=== PATIENT | female | born 1970 | race Hispanic/Latino ===

== ENCOUNTER 2019-08-30 22:00 | Emergency (ER) | payer OTHER ==
[2019-08-30] MEDS ORDERED: SODIUM CHLORIDE 0.9% 1000 ML 1,000 ML IV ONE (22:13)
[2019-08-30] MEDS ORDERED: levETIRAcetam 1000 MG/NS 0.75% 1,000 MG/100 ML BAG IV ONE (22:13)
[2019-08-30] MEDS ORDERED: MORPHINE 4 MG/1 ML INJ IV ONE (22:33)
[2019-08-30] MEDS ORDERED: ONDANSETRON 4 MG/2 ML INJ ONE (22:37)
--- NOTE | 2019-08-30 22:59 | XRay Report ---
Left knee 3 views INDICATION: Left knee pain. IMPRESSION: No fracture or subluxation of the left knee is identified. Signer Name: Eduardo Denis MD Signed: 08/30/2019 10:55 PM Workstation Name: [id number]
[2019-08-30 23:10] LABS: Basophils # (Auto) 0.1 K/mm3 (0.0-0.1); Basophils % (Auto) 1.1 % (0.0-1.8); Eosinophils # (Auto) 0.2 K/mm3 (0.0-0.4); Eosinophils % (Auto) 2.5 % (0.0-4.3); Hematocrit 35.2 % (30.3-42.9); Hemoglobin 11.1 gm/dl (10.1-14.3); Lymphocytes # (Auto) 2.1 K/mm3 (1.2-5.4); Lymphocytes % (Auto) 22.6 % (13.4-35.0); Mean Corpuscular HGB Conc 32 % (30-34); Mean Corpuscular Volume 86 fl (79-97); Monocytes # (Auto) 0.7 K/mm3 (0.0-0.8); Monocytes % (Auto) 7.9 % (0.0-7.3); Platelet Count 270 K/mm3 (140-440); Red Blood Count 4.12 M/mm3 (3.65-5.03); Red Cell Distribution Width 16.1 % (13.2-15.2)
--- NOTE | 2019-08-30 23:14 | Cat Scan Report ---
CT head without contrast INDICATION : Seizure with headache. TECHNIQUE: Axial imaging performed from the skull apex through the skull base without the use of con trast. All CT examinations performed at this facility utilize dose modulation, iterative reconstruct ion or weight-based dosing, when appropriate, to reduce radiation dose to as low as reasonably achiev able. COMPARISON: None FINDINGS: No acute intracranial hemorrhage or parenchymal abnormality. Ventricles are normal in si ze and appear symmetric. Soft tissues including the orbits appear normal. No acute osseous abnorm ality. Sinuses and mastoid air cells are clear. IMPRESSION: No acute abnormality. Signer Name: Eduardo Denis MD Signed: 08/30/2019 11:09 PM Workstation Name: [id number]
--- NOTE | 2019-08-30 23:15 | Emergency Department Report ---
HPI - General Chief Complaint: Seizure Time Seen by Provider: 08/30/19 22:13 - HPI HPI: 49-year-old female presents to the emergency department from [place] with complaint of some witnessed seizure-like activity. Patient says that she has a history of a seizure disorder for which she is supposed to be on Keppra 750 mg twice daily. The patient is currently an involuntary admission at [facility] secondary to some recent depression and suicidal ideations. She has a diagnosed history of bipolar disorder. Apparently the patient had some seizure-like activity and fell to the ground at the facility. The patient denies hitting her head but does complain of having a headache, as well as some left lateral knee pain. Overall she has generalized body aches. Patient says that she has not had her Keppra since being at the [place] facility. She is a tobacco smoker but denies any illicit drug use. ED Past Medical Hx - Past Medical History Hx Seizures: Yes (Keppra 500 BID) Hx Psychiatric Treatment: Yes (Depression) - Surgical History Past Surgical History?: Yes Additional Surgical History: hysterectomy, gastric bypass - Social History Smoking Status: Current Every Day Smoker Substance Use Type: Alcohol ED Review of Systems ROS: Stated complaint: SEIZURE Other details as noted in HPI Comment: All other systems reviewed and negative Constitutional: denies: chills, fever Eyes: denies: eye pain, vision change ENT: denies: ear pain, throat pain Respiratory: denies: cough, shortness of breath Cardiovascular: denies: chest pain, palpitations Gastrointestinal: denies: abdominal pain, vomiting Musculoskeletal: arthralgia, myalgia. denies: back pain Skin: denies: rash, lesions Neurological: denies: headache, numbness Physical Exam - Physical Exam Vital Signs: Vital Signs 08/30/19 08/30/19 22:13 22:22 Temperature 97.7 F Pulse Rate 84 Respiratory 18 18 Rate Blood Pressure 125/84 O2 Sat by Pulse 96 96 Oximetry Physical Exam: GENERAL: The patient is well-developed well-nourished. HENT: Normocephalic. Atraumatic. Patient has moist mucous membranes. EYES: Extraocular motions are intact. Pupils equal reactive to light bilaterally. No nystagmus. NECK: Supple. Trachea is midline. CHEST/LUNGS: Clear to auscultation. There is no respiratory distress noted. HEART/CARDIOVASCULAR: Regular. There is no tachycardia. There is no murmur. ABDOMEN: Abdomen is soft, nontender. Patient has normal bowel sounds. SKIN: Skin is warm and dry. NEURO: The patient is awake, alert, and oriented. The patient is cooperative. The patient has no focal neurologic deficits. Normal speech. Cranial nerves II through XII grossly intact. MUSCULOSKELETAL: There is some left lateral knee pain to palpation but otherwise no obvious deformity. Negative anterior and posterior drawer test and no laxity with valgus or varus stress. ED Course Vital Signs 08/30/19 08/30/19 22:13 22:22 Temperature 97.7 F Pulse Rate 84 Respiratory 18 18 Rate Blood Pressure 125/84 O2 Sat by Pulse 96 96 Oximetry ED Medical Decision Making - Lab Data Result diagrams: 08/30/19 22:26 08/30/19 22:26 - EKG Data -: EKG Interpreted by Me EKG shows normal: sinus rhythm, axis, intervals, QRS complexes, ST-T waves Rate: normal - EKG Data When compared to previous EKG there are: previous EKG unavailable Interpretation: normal EKG - Radiology Data Radiology results: report reviewed, image reviewed interpreted by me: X-ray of the left knee does not show any fracture, dislocation, or any acute process. CT head without contrast INDICATION : Seizure with headache. TECHNIQUE: Axial imaging performed from the skull apex through the skull base without the use of contrast. All CT examinations performed at this facility utilize dose modulation, iterative reconstruction or weight-based dosing, when appropriate, to reduce radiation dose to as low as reasonably achievable. COMPARISON: None FINDINGS: No acute intracranial hemorrhage or parenchymal abnormality. Ventricles are normal in size and appear symmetric. Soft tissues including the orbits appear normal. No acute osseous abnormality. Sinuses and mastoid air cells are clear. IMPRESSION: No acute abnormality. - Medical Decision Making This patient presents to the emergency department after having some seizure-like activity at her psychiatric facility prior to arrival. Patient does apparently have a seizure history for which she is supposed to be on Keppra 750 mg twice daily. However there is been some recent medication noncompliance. Patient was given a loading dose of 1 g of Keppra. She complained of a headache and therefore patient had a CT scan of the head without contrast that did not show any bleed, shift, mass, ischemia, or any other acute intracranial abnormality. Patient's labs were unremarkable including CBC, metabolic panel, TSH. She had an EKG that did not have any morphology consistent with ST elevation [place] or any significant dysrhythmia. The patient was reevaluated multiple times over almost 3 hours and there has been no return of any seizure-like activity and the patient has remained stable throughout her ED course. For these reasons the patient will be discharged back to her psychiatric facility. She says she has both a primary care physician and neurologist to follow-up with outpatient when she is done with her psychiatric care. She will return to the closest emergency department with any worsening of her symptoms or with any acute distress. The patient also had complained about some left knee pain. There was some reproducible left lateral knee pain but no obvious deformities. An x-ray was done that does not show any fracture, dislocation, or any acute process. The patient was seen ambulatory in the emergency department and did not appear to be favoring that left knee. However she has been given a referral for a local orthopedist to follow-up regarding the knee pain when she is able to do so. Critical Care Time: No Critical care attestation.: If time is entered above; I have spent that time in minutes in the direct care of this critically ill patient, excluding procedure time. ED Disposition Clinical Impression: Seizure-like activity, History of seizures Left knee pain Qualifiers: Chronicity: unspecified Qualified Code(s): M25.562 - Pain in left knee Disposition: DC/TX-65 PSY HOSP/PSY UNIT Is pt being admited?: No Condition: Stable Instructions: Knee Pain (ED), Arthralgia (ED), Recurrent Seizures Adult (ED) Additional Instructions: Please follow-up with your primary care physician and/or neurologist as soon as you are able to do so. I am giving you a referral for a local orthopedist, Dr. Richardson, to follow-up regarding your left knee pain. Take all of your medications as prescribed. Return to the emergency department with any worsening of your symptoms or any acute distress. Referrals: SAI BUTCHER MD [Primary Care Provider] - 3-5 Days EDDIE RICHARDSON MD [Staff Physician] - 3-5 Days Time of Disposition: 00:04
[2019-08-30 23:25] LABS: Alanine Aminotransferase 18 units/L (7-56); Albumin 3.5 g/dL (3.9-5); BUN/Creatinine Ratio 13; Blood Urea Nitrogen 10 mg/dL (7-17); Calcium 8.6 mg/dL (8.4-10.2); Hemolysis Index 20
[2019-08-30] MEDS ORDERED: KETOROLAC 30 MG/1 ML INJ IV ONE (23:29)
[2019-08-30] MEDS ORDERED: HYDROmorphone 1 MG/1 ML INJ IV ONE (23:43)
[2019-08-31 00:51] VITALS: BP 119/76
== END 2019-08-31 00:49 ==
LOC: ED 22:00
DX: M25.562 Pain in left knee (principal); R56.9 Unspecified convulsions; F32.9 Major depressive disorder, single episode, unspecified; F17.200 Nicotine dependence, unspecified, uncomplicated; Z88.0 Allergy status to penicillin; Z90.710 Acquired absence of both cervix and uterus; Z98.890 Other specified postprocedural states; Z86.69 Personal history of other diseases of the nervous system and sense organs
CPT/HCPCS: 36415; 70450; 73562; 80053; 82550; 84443; 85025; 93005; 96365; 96375; 99285; J1170; J1953; J2270; J2405; J7030